=== PATIENT | female | born 1990 | race Caucasian/White ===

== ENCOUNTER 2018-05-25 11:50 | Inpatient (IN) | payer MEDICAID ==
[2018-05-25 11:58] VITALS: O2SAT 99
--- NOTE | 2018-05-25 12:59 | C.PDOC ---
History Of Present Illness 27 y/o female brought in by EMS, transferred here for psychiatric admission. Patient has PMHx of schizophrenia and was already evaluated at [facility] and cleared for admission. Patient denies any current suicidal or homicidal ideation. Time Seen by Provider: 05/25/18 12:11 Chief Complaint (Nursing): Psychiatric Evaluation History Per: Patient History/Exam Limitations: no limitations Onset/Duration Of Symptoms: Days Current Symptoms Are (Timing): Still Present Suicide/Self Injury Attempted (Context): None Associated Symptoms: denies: Suicidal Thoughts, Suicidal Plan Additional History Per: EMS, Prior Records Past Medical History Reviewed: Historical Data, Nursing Documentation, Vital Signs Vital Signs: Last Vital Signs Temp 98.3 F 05/25/18 12:27 Pulse 76 05/25/18 15:32 Resp 16 05/25/18 13:25 BP 129/72 05/25/18 15:32 Pulse Ox 99 05/25/18 13:02 - Medical History PMH: Schizophrenia Family History: States: No Known Family Hx - Social History Hx Tobacco Use: Yes Hx Alcohol Use: Yes Hx Substance Use: No - Immunization History Hx Tetanus Toxoid Vaccination: No Hx Influenza Vaccination: No Hx Pneumococcal Vaccination: No Review Of Systems Except As Marked, All Systems Reviewed And Found Negative. Constitutional: Negative for: Fever Cardiovascular: Negative for: Chest Pain Respiratory: Negative for: Shortness of Breath Gastrointestinal: Negative for: Vomiting, Diarrhea Neurological: Negative for: Weakness, Numbness Psych: Positive for: Anxiety, Depression. Negative for: Suicidal ideation Physical Exam - Physical Exam Appears: Non-toxic, No Acute Distress, Other (Thin black female) Skin: Normal Color, Warm, Dry Head: Atraumatic, Normacephalic Eye(s): bilateral: Normal Inspection Neck: Normal ROM Chest: Symmetrical Cardiovascular: Rhythm Regular, No Murmur Respiratory: Normal Breath Sounds, No Accessory Muscle Use Gastrointestinal/Abdominal: Soft, No Tenderness, No Distention Extremity: Bilateral: Atraumatic, Normal ROM Pulses: Left Dorsalis Pedis: Normal, Right Dorsalis Pedis: Normal Neurological/Psych: Oriented x3, Normal Speech, Other (Flat affect) Gait: Steady ED Course And Treatment O2 Sat by Pulse Oximetry: 99 (RA) Pulse Ox Interpretation: Normal Medical Decision Making Medical Decision Making: Plan: Patient already cleared for psychiatric admission. Patient to be admitted under Dr. Perez's service, dx of depression and anxiety. Disposition Discussed With : Cristiane Perez Doctor Will See Patient In The: Hospital Counseled Patient/Family Regarding: Diagnosis - Disposition Disposition: HOSPITALIZED Disposition Time: 12:23 Condition: STABLE - Clinical Impression Clinical Impression: Schizophrenia - Scribe Statement The provider has reviewed the documentation as recorded by the Rajesh Rutledge Provider Attestation: All medical record entries made by the Rajesh were at my direction and personally dictated by me. I have reviewed the chart and agree that the record accurately reflects my personal performance of the history, physical exam, medical decision making, and the department course for this patient. I have also personally directed, reviewed, and agree with the discharge instructions and disposition.
[2018-05-26 06:45] VITALS: RESP 20
--- NOTE | 2018-05-26 10:10 | PCM.PSYCH ---
Initial Psychiatric Evaluation - Initial Psychiatric Evaluation Type of Admission: Voluntary Legal Status: Capacity Current Medications: Active Medications Generic Name Dose Route Start Last Admin Trade Name Freq PRN Reason Stop Dose Admin Famciclovir 500 mg 05/25/18 18:00 05/26/18 09:41 Famvir PO Not Given BID [facility] Protocol Hydroxyzine HCl 25 mg 05/25/18 14:51 05/25/18 18:46 Atarax PO 25 mg Q4H PRN Administration Anxiety Ibuprofen 400 mg 05/25/18 14:51 Motrin Tab PO Q6H PRN Pain, moderate (4-7) Trazodone HCl 50 mg 05/25/18 22:00 05/25/18 21:40 Desyrel PO 50 mg HS MANNIE Administration Past Psychiatric History - Past Psychiatric History Pertinent Medical Hx (Current Medical&Sleep Prob, Allergies): Allergies Allergy/AdvReac Type Severity Reaction Status Date / Time azithromycin Allergy Verified 05/25/18 11:58 Divalproex Sodium 250 mg PO BID 05/25/18 Famciclovir [Famvir] 500 mg PO BID 05/25/18 Ibuprofen [Advil] 600 mg PO Q6 PRN 05/25/18 Olanzapine [Zyprexa] 5 mg PO QPM 05/25/18 Oxycodone HCl/Acetaminophen [Endocet 5-325 Tablet] 1 each PO Q4 PRN 05/25/18 traMADol [Ultram] 50 mg PO Q4 PRN 05/25/18
[2018-05-26] MEDS ORDERED: Divalproex 125 mg Sprinkle Capsule PO SCH (10:15)
[2018-05-26] MEDS ORDERED: Divalproex 250 mg DR Tab PO SCH (10:45)
[2018-05-26] MEDS ORDERED: Divalproex 250 mg DR Tab PO STA (10:56)
--- NOTE | 2018-05-26 13:04 | PCM.PSYCH ---
Initial Psychiatric Evaluation - Initial Psychiatric Evaluation Type of Admission: Voluntary Legal Status: Capacity Chief Complaint (in patient's own words): "I was having sleeping problems" History of Present Illness and Precipitating Events: PGY-1 Initial Psychiatric Evaluation for Dr. Sanchez. HPI: Patient is a 27 year old female with history of anxiety. Patient states she admitted herself voluntarily due to insomnia for the past 7 days. Patient states she has been feeling anxious lately due to recovering from a 5th metatarsal fracture of left foot and dealing with pressures from her family. She states she began having difficulty sleeping when she fractured her foot in September (8 months ago), but now it is the worst it has ever been. States she has not been able to sleep for more than one hour per day for the past week, which has never happened before. She states that she had the urge to sleep, but her mind was racing with everything that was going on in her life that it prevented her from sleeping. Associated symptoms include palpitations. Patient denies AVH, impulsive shopping, increased activity, depression, suicidal ideation. Patient states she has had anxiety and a fear of dying when she first learned about at 5 years old. She has taken alprazolam previously for anxiety. More recently when patient fractured her foot, she had a panic attack while at [facility] and had to be sedated. She was discharged from [place] with a prescription for olanzapine and valproic acid, which she states she only takes when she feels anxiety. Patient states that she has signed up for a behavioral health program at [facility] because "I don' t know if I have bipolar disorder, but if I do, I want to get it treated the right way." Past Psychiatric Hx: Anxiety Social Hx: Smokes 10 cigarettes per day for the past year, increased from a few cigarettes per day since 2013. She lives in an apartment with her mother, younger brother and fiance. 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 Family Hx: Current Medications: Active Medications Generic Name Dose Route Start Last Admin Trade Name Freq PRN Reason Stop Dose Admin Divalproex Sodium 500 mg 05/26/18 18:00 Andriy MARTINEZ QPM [facility] Famciclovir 500 mg 05/25/18 18:00 05/26/18 09:41 Famvir PO Not Given BID [facility] Protocol Hydroxyzine HCl 25 mg 05/25/18 14:51 05/25/18 18:46 Atarax PO 25 mg Q4H PRN Administration Anxiety Ibuprofen 400 mg 05/25/18 14:51 Motrin Tab PO Q6H PRN Pain, moderate (4-7) Nicotine 1 patch 05/26/18 10:45 05/26/18 11:01 Nicoderm Cq TD 1 patch DAILY MANNIE Administration Trazodone HCl 50 mg 05/25/18 22:00 05/25/18 21:40 Desyrel PO 50 mg HS MANNIE Administration Past Psychiatric History - Past Psychiatric History Pertinent Medical Hx (Current Medical&Sleep Prob, Allergies): Allergies Allergy/AdvReac Type Severity Reaction Status Date / Time azithromycin Allergy Verified 05/25/18 11:58 Divalproex Sodium 250 mg PO BID 05/25/18 Famciclovir [Famvir] 500 mg PO BID 05/25/18 Ibuprofen [Advil] 600 mg PO Q6 PRN 05/25/18 Olanzapine [Zyprexa] 5 mg PO QPM 05/25/18 Oxycodone HCl/Acetaminophen [Endocet 5-325 Tablet] 1 each PO Q4 PRN 05/25/18 traMADol [Ultram] 50 mg PO Q4 PRN 05/25/18 Review of Systems - Psychiatric Psychiatric: Abnormal Sleep Pattern, Anxiety, Panic Attacks. absent: Anhedonia , Auditory Hallucinations, Change in Appetite, Confusion, Depression, Hallucinations, Homicidal Ideation, Visual Hallucinations, Tactile Hallucinations Mental Status Examination - Personal Presentation Personal Presentation: Looks stated age - Affect Affect: Other (appropriate) - Motor Activity Motor Activity: Calm - Reliability in Providing Information Reliability in Providing Information: Good - Speech Speech: Organized, Relevant, Coherent - Mood Mood: Anxious - Formal Thought Process Formal Thought Process: No Impairment - Cognitive Functions Orientation: Person, Place, Situation, Time Sensorium: Alert Attention/Concentration: Attentive Abstract Thinking: Nelson Judgement: Intact, as evidence by: Insight regarding need for hospitalization Memory: Recent intact, as evidence by: Ability to recall events of the day - Strength & Assets Inventory Strength & Assets Inventory: Intelligence, Education, Skills, Interests/hobbies DSM 5 DX - DSM 5 DSM 5 Diagnosis: Bipolar disorder, manic phase Nicotine use disorder, moderate Left 5th Metatarsal fracture - Recommended/Plan of Treatment Treatment Recommendations and Plan of Treatment: Bipolar Disorder, manic phase CBT Psychoeducation Supportive therapy, group therapy, individual therapy Depakote 500mg PO QPM Atarax 25mg PO Q6H PRN anxiety Trazodone 50mg PO HS Nicotine use disorder, moderate CBT Psychoeducation Supportive therapy, individual therapy Use [place] for abstinence Nicotine withdrawal CBT Psychoeducation Supportive therapy, individual therapy Nicoderm 1patch TD daily Left 5th metatarsal fracture Ibuprofen 400mg PO Q6H PRN pain Wheel chair Fall risk precautions
[2018-05-26] MEDS ORDERED: Divalproex 500 mg DR Tab PO SCH (18:00)
[2018-05-27 06:21] VITALS: BP 116/72; PULSE 80; TEMP 97.9
--- NOTE | 2018-05-27 08:34 | CP.PCM.PN ---
Subjective - Date & Time of Evaluation Date of Evaluation: 05/27/18 Time of Evaluation: 08:00 - Subjective Subjective: PGY-1 Psychiatric Progress Note for Dr. Sanchez. Patient was seen, chart reviewed, and case discussed with staff. The patient is compliant with medications. States she initially felt jittery after her afternoon dose of depakote, but it resolved on its own. No other side effects noted. States she feels "pretty good" and slept well last night. States her thoughts are no longer racing. Denies insomnia, thoughts of grandiosity, depression, suicidal ideation, homicidal ideation, and AVH. Supportive therapy and psycho-education provided. After care discussed. Objective - Vital Signs/Intake and Output Vital Signs (last 24 hours): Temp Pulse Resp BP Pulse Ox 97.9 F 80 20 116/72 99 05/27/18 06:20 05/27/18 06:20 05/27/18 06:20 05/27/18 06:20 05/25/18 23:42 - Medications Medications: Current Medications Divalproex Sodium (Depakote Dr) 500 mg PO QPM [facility] Last Admin: 05/26/18 17:13 Dose: 500 mg Divalproex Sodium (Depakote Dr) 250 mg PO DAILY [facility] Famciclovir (Famvir) 500 mg PO BID MANNIE PRN Reason: Protocol Last Admin: 05/26/18 17:27 Dose: Not Given Hydroxyzine HCl (Atarax) 25 mg PO Q4H PRN PRN Reason: Anxiety Last Admin: 05/27/18 06:07 Dose: 25 mg Ibuprofen (Motrin Tab) 400 mg PO Q6H PRN PRN Reason: Pain, moderate (4-7) Nicotine (Nicoderm Cq) 1 patch TD DAILY [facility] Last Admin: 05/26/18 11:01 Dose: 1 patch Trazodone HCl (Desyrel) 50 mg PO HS [facility] Last Admin: 05/26/18 21:41 Dose: 50 mg
--- NOTE | 2018-05-27 08:36 | PCM.PYCHPN ---
Psychiatric Progress Note - Psychiatric Progress Note Patient seen today, length of contact: 16 Patient Chief Complaint: "I feel pretty good" Problems Identified/Issues Discussed: PGY-1 Psychiatric Progress Note for Dr. Sanchez. Patient was seen, chart reviewed, and case discussed with staff. The patient is compliant with medications. States she initially felt jittery after her afternoon dose of depakote yesterday, but it resolved on its own. States she feels "pretty good" and slept well last night. She wishes to go home. States her thoughts are no longer racing. However, is experiencing anxiety after being told she might have a thyroid issue this morning by a staff member. Denies insomnia, depression, suicidal ideation, homicidal ideation, and AVH. Supportive therapy and psycho-education provided. After care discussed. Mental Status Examination - Cognitive Function Orientation: Person, Place, Situation, Time - Mood Mood: Anxious - Affect Affect: Other (appropriate) - Formal Thought Process Formal Thought Process: No Impairment Goal/Treatment Plan - Goal/Treatment Plan Progress Toward Problem(s) and Goals/Treatment Plan: Bipolar Disorder, manic phase CBT Psychoeducation Supportive therapy, group therapy, individual therapy Depakote 500mg PO QPM Atarax 25mg PO Q6H PRN anxiety Trazodone 50mg PO HS Nicotine use disorder, moderate CBT Psychoeducation Supportive therapy, individual therapy Use [place] for abstinence Nicotine withdrawal CBT Psychoeducation Supportive therapy, individual therapy Nicoderm 1patch TD daily Left 5th metatarsal fracture Ibuprofen 400mg PO Q6H PRN pain Wheel chair Fall risk precautions
--- NOTE | 2018-05-27 09:46 | PCM.BM ---
<BritneyOraliaabhishek Brewster - Last Filed: 05/27/18 09:45> Treatment Plan Problems - Problems identified on initial assessmt Depression Date Initiated: 05/27/18 Time Initiated: 09:45 Assessment reference: NA Status: Active Treatment assets and liabiliti Patient Assests: adapts well, cooperative, ADL independent, physically healthy, good support system, cognitively intact Patient Liabilities: financial problems - Milieu Protocol Maintain good personal hygiene: daily Encourage regular showers, daily Remind patient to perform daily oral care, daily Assist patient to perform ADL's Conduct patient checks and document Observation sheet: Q15 minutes Maintain personal safety: every shift Educate patient to report safety concerns to staff, every shift Monitor environment for contraband/sharps Medication safety: Monitor for expected outcome, potential side effects: every shift, Assess barriers to learning: every shift, Assess readiness for medication education: every shift Milieu Narrative: Bipolar Disorder, manic phase CBT Psychoeducation Supportive therapy, group therapy, individual therapy Depakote 500mg PO QPM Atarax 25mg PO Q6H PRN anxiety Trazodone 50mg PO HS Nicotine use disorder, moderate CBT Psychoeducation Supportive therapy, individual therapy Use [place] for abstinence Nicotine withdrawal CBT Psychoeducation Supportive therapy, individual therapy Nicoderm 1patch TD daily Left 5th metatarsal fracture Ibuprofen 400mg PO Q6H PRN pain Wheel chair Fall risk precautions Discharge/Continuing Care - Treatment Team Participation Patient/Family/SO Statement: Bipolar Disorder, manic phase CBT Psychoeducation Supportive therapy, group therapy, individual therapy Depakote 500mg PO QPM Atarax 25mg PO Q6H PRN anxiety Trazodone 50mg PO HS Nicotine use disorder, moderate CBT Psychoeducation Supportive therapy, individual therapy Use [place] for abstinence Nicotine withdrawal CBT Psychoeducation Supportive therapy, individual therapy Nicoderm 1patch TD daily Left 5th metatarsal fracture Ibuprofen 400mg PO Q6H PRN pain Wheel chair Fall risk precautions <Duglas Sanchez - Last Filed: 05/27/18 10:44> - Diagnosis (1) Bipolar disorder Status: Acute Interventions: 05/27/18 10:45 * Assess/adjust medications daily and /or as needed * See patient on an individual basis 7x/week to assess level of manic behaviors and stability * Discuss risks, benefits, side effects and alternatives of medications * <Tiffany Leon Cyndie - Last Filed: 05/27/18 12:04> Family Contact Family involvement: Patient does not wish Family/SO involvement Family contact: Patient declines to allow family contact at present - Goals for Treatment Patient goals for treatment: "I want to go to [facility] outpatient program." Discharge/Continuing Care - Education Needs Education Needs: Patient Medication, Patient Diagnosis/Disease Process, Patient Coping Skills, Patient Placement options, Patient Community resources - Discharge Discharge Criteria: Normal sleep pattern, Ability to care for self, Reduction of target symptoms Discharge to:: Home - Treatment Team Participation Discussed with Family/SO: No Was Patient/Family/SO present at Treatment Team Meeting: Yes
[2018-05-27] MEDS ORDERED: Divalproex 250 mg DR Tab PO SCH (10:00)
== END 2018-05-27 12:15 | disposition home or self-care (01) | DRG 430 ==
LOC: C.ER 11:50 → C.5E 12:23
PROVIDERS: ADMIT Psychiatry & Neurology Psychiatry; ATTEND Psychiatry & Neurology Psychiatry
PROC: GZHZZZZ Group Psychotherapy (ICD-10-PCS; principal; 2018-05-25)
PROC: GZ58ZZZ Individual Psychotherapy, Cognitive-Behavioral (ICD-10-PCS; 2018-05-25)
PROC: GZ56ZZZ Individual Psychotherapy, Supportive (ICD-10-PCS; 2018-05-25)
DX: F31.9 Bipolar disorder, unspecified (principal); F41.0 Panic disorder [episodic paroxysmal anxiety]; F41.9 Anxiety disorder, unspecified; F20.9 Schizophrenia, unspecified; G47.00 Insomnia, unspecified; F17.210 Nicotine dependence, cigarettes, uncomplicated; S92.352A Displaced fracture of fifth metatarsal bone, left foot, initial encounter for closed fracture; X58.XXXA Exposure to other specified factors, initial encounter; Y93.9 Activity, unspecified